=== PATIENT | male | born 1975 | race Caucasian/White ===

== ENCOUNTER 2023-05-27 18:31 | Emergency (ER) | payer OTHER, SELFPAY ==
[2023-05-27 18:45] VITALS: BP 154/106; PULSE 89; RESP 20; O2SAT 97; BMI 33.7
--- NOTE | 2023-05-27 19:13 | ED.GENADULT ---
HPI - General Adult General Date Seen: 05/27/23 Chief complaint: Skin/Abscess/Foreign Body Stated complaint: L leg Spontaneous shooting leg bleed Time Seen by Provider: 05/27/23 18:58 History of Present Illness HPI narrative: This is a very pleasant 47-year-old gentleman presenting to the ER this evening with his for evaluation of bleeding from a chronic sore on the medial aspect of his left lower leg, his medial england, which is about 3[address] from his knee to his ankle. He has had this chronic sore there for the past couple of years. He has apparently had extensive evaluations through his primary care office and with vascular surgeons. He has been told that he has a ?vascular problem? or trouble with the venous outflow from his legs. Apparently this is also associated with varicose veins. He has had consultation with a vascular specialist and they advised against any procedure to correct the veins because of potential risk. Therefore he has had a chronic area on his medial england that is been bothering him. This would affect a roughly 5 x 6 area of his medial england where there is some chronic hemosiderin deposits. He does occasionally developed redness and infection there and had been on antibiotics for that a few weeks ago. Since then he has had a small 1 cm ulcer in the skin. This is been ulcerated and not healing since roughly Day, about 6 weeks ago. He has not had any recent redness. No recent swelling. No fevers or chills. No other bleeding. No injury to that area. This evening he was fixing dinner in the kitchen. He did not have any pain but his family noticed that there was blood on the floor. It turns out he was bleeding fairly briskly with dark red venous blood from the ulcer. He says the blood was squirting out but was not really pulsatile. He was not dizzy or lightheaded, having pain. He applied direct pressure and came straight here to the ER with his . By the time he arrived here the bleeding was substantially slow but not resolved. Nurses applied a pressure dressing to the wound at triage and the bleeding has now stopped. He does not have any other recent unusual bleeding or bruising. He does not take any anticoagulants or anti-platelet meds. He feels fine otherwise. No lightheadedness, shortness of breath, weakness. Related Data Home Medications Medication Instructions Recorded Confirmed amlodipine 5 mg tablet 5 mg PO DAILY 05/27/23 05/27/23 famotidine 20 mg tablet 20 mg PO BID 05/27/23 05/27/23 metoprolol succinate 100 mg 100 mg PO DAILY 05/27/23 05/27/23 tablet,extended release 24 hr rosuvastatin 10 mg tablet 10 mg PO QPM 05/27/23 05/27/23 triamterene 37.5 1 cap PO QAM 05/27/23 05/27/23 mg-hydrochlorothiazide 25 mg capsule Allergies Allergy/AdvReac Type Severity Reaction Status Date / Time No Known Drug Allergies Allergy Verified 05/27/23 18:44 PFSH ON LICENSE OF [facility] Social History Smoking Status: Never smoker Do you use any of these nicotine containing products: None Second hand tobacco smoke exposure: No How often do you have a drink containing alcohol: 4 or more times a week How many standard drinks containing alcohol do you have on a typical day: 5 or 6 How often do you have six or more drinks on one occasion: Daily or almost daily AUDIT-C Alcohol total score: 10 Non-prescribed substance use: denies use service: No Exam Narrative: Exam Narrative: Constitutional: Appears well-developed and well-nourished. Alert. Conversant. Non toxic. HENT: Head: Atraumatic. Nose: Nose normal. Mouth/Throat: Oral mucosa is clear and moist. no trismus. Eyes: Conjunctivae normal. EOM normal. Pupils equal, round, and reactive to light. No scleral icterus. Neck: Normal range of motion. Neck supple. No tracheal deviation present. Cardiovascular: Normal rate, regular rhythm. No gallop. No friction rub. No murmur heard. Symmetric DP and PT artery pulses . Normal brisk distal cap refill. No signs of acute limb ischemia. Pulmonary/Chest: Effort normal. No stridor. No respiratory distress. No wheezes. No rales. No rhonchi . Musculoskeletal: RUE: Normal range of motion. No tenderness. No deformity LUE: Normal range of motion. No tenderness. No deformity RLE: Normal range of motion. No edema. No tenderness. No deformity LLE: Normal range of motion. No edema. No tenderness. No deformity Neurological: Alert and oriented to person, place, and time. Normal strength. CN II-VII intact. No sensory deficit. GCS eye subscore is 4. GCS verbal subscore is 5. GCS motor subscore is 6. Normal coordination Skin: Pressure dressing is in place over the left england, removed for exam. There is an area of chronic appearing hemosiderin deposits affecting roughly the distal 1/3 of his left medial england. No erythema, redness, fluctuance to suggest cellulitis, abscess, gangrene. There is a roughly 1 cm area where there is an open ulceration of the skin with granulation tissue at its base. This was the site of his bleeding at home. No active bleeding at this time. Skin is otherwise pink, warm and dry. No other rash noted. No pallor. Normal capillary refill. Psychiatric: Normal mood. Normal affect. Very pleasant Const: Vital Signs, click to edit/add: Vital Signs - 24 hr 05/27/23 18:45 05/27/23 20:29 Pulse Rate [Pulse Oximeter] 89 82 Respiratory Rate 20 16 Blood Pressure [Le ft Upper Arm] 154/106 H 120/96 H Pulse Oximetry 97 97 Oxygen Delivery Me thod Room Air Room Air Course Vital Signs Vital signs: Initial Vital Signs Temperature Source Temporal Artery Scan 05/27/23 18:45 Pulse Rate 89 05/27/23 18:45 Pulse Rhythm Regular 05/27/23 18:45 Respiratory Rate 20 05/27/23 18:45 Blood Pressure 154/106 H 05/27/23 18:45 Blood Pressure Mean 122 H 05/27/23 18:45 Blood Pressure Position Supine 05/27/23 18:45 Pulse Oximetry 97 05/27/23 18:45 Oxygen Delivery Method Room Air 05/27/23 18:45 Vital Signs Pulse Rate 89 05/27/23 18:45 Respiratory Rate 20 05/27/23 18:45 Blood Pressure 154/106 H 05/27/23 18:45 Pulse Oximetry 97 05/27/23 18:45 Oxygen Delivery Method Room Air 05/27/23 18:45 Pulse Rate 82 05/27/23 20:29 Respiratory Rate 16 05/27/23 20:29 Blood Pressure 120/96 H 05/27/23 20:29 Pulse Oximetry 97 05/27/23 20:29 Oxygen Delivery Method Room Air 05/27/23 20:29 Medical Decision Making MDM Narrative Medical decision making narrative: Very pleasant 47-year-old gentleman with a chronic sore on his left lower leg/medial england that has been bothersome for the past 3 years. Apparently is related to vascular problems and varicose veins leg that are not amenable to repair according to his vascular specialist. He presents to the ER today with episode of an acute atraumatic bleeding from that ulcer. Fortunately bleeding was controlled by direct pressure. He is not anemic, coagulopathic, or anticoagulated. Blood pressure is stable. Discussed with on-call surgeon. Follow up in Wound Clinic as an outpatient Precautions for return to the ER reviewed. Patient and his are comfortable with that plan and eager for discharge. Lab Data Labs: Lab Results 05/27/23 Range/Units 19:27 WBC 6.44 (4.50-11.00) K/uL RBC 4.14 L (4.30-5.90) m/uL Hgb 12.7 L (13.5-17.5) gm/dL Hct 36.9 L (37.0-53.0) % MCV 89 (80-100) fL MCH 31 (26-34) pg MCHC 34 (32-36) gm/dL RDW Coeff of Jesu 12.0 (11.5-15.5) % Plt Count 225 (140-440) K/uL Neut % (Auto) 52.9 (42.0-72.0) % Lymph % (Auto) 34.5 (20-44) % [place] % (Auto) 7.6 (0.0-11.0) % Eos % (Auto) 4.2 (0.0-7.0) % Baso % (Auto) 0.6 (0.0-3.0) % Neut # (Auto) 3.41 (1.7-7.0) K/uL Lymph # (Auto) 2.22 (0.90-2.90) K/uL [place] # (Auto) 0.50 (0.00-0.90) K/UL Eos # (Auto) 0.27 (0.00-0.50) K/uL Baso # (Auto) 0.04 (0.00-0.30) K/uL Abs Immat Gran (auto) 0.01 (0.00-0.30) K/uL Imm/Tot Granulo (auto) 0.2 % INR 0.92 (0.91-1.10) Discharge Plan Discharge Clinical Impression: Chronic wound, Hemorrhage from wound Patient Disposition: Home, Self-Care Condition: Stable Instructions: Chronic Wounds (ED) Additional Instructions: If you have recurrent bleeding from your wound, sit down and elevate your leg, apply direct pressure for 10 minutes. If the wound is still bleeding, wrap the wound and return to the ER immediately to be rechecked. Please follow-up withl the [facility] wound healing center [phone] To schedule a recheck appointment. If you have any concerns such as recurrent bleeding or any other problems, return to the ER or see your doctor right away. Prescriptions: No Action metoprolol succinate 100 mg tablet extended release 24 hr 100 mg PO DAILY amlodipine 5 mg tablet 5 mg PO DAILY triamterene-hydrochlorothiazid 37.5-25 mg capsule 1 cap PO QAM famotidine 20 mg tablet 20 mg PO BID rosuvastatin 10 mg tablet 10 mg PO QPM Follow Up/Referrals: Provider,Not a Local [Referring] - Stand Alone Forms: [employer] Info Instructions
[2023-05-27 20:03] LABS: Basophils Absolute Auto 0.04 K/uL (0.00-0.30); Basophils Percent Auto 0.6 % (0.0-3.0); Eosinophils Absolute Auto 0.27 K/uL (0.00-0.50); Eosinophils Percent Auto 4.2 % (0.0-7.0); Hematocrit 36.9 % (37.0-53.0); Hemoglobin* 12.7 gm/dL (13.5-17.5); Immature Granulocytes Abs Auto 0.01 K/uL (0.00-0.30); Immature Granulocytes Pct Auto 0.2 %; Lymphocytes Absolute Auto 2.22 K/uL (0.90-2.90); Lymphocytes Percent Auto 34.5 % (20-44); Mean Corpuscular HGB Conc 34 gm/dL (32-36); Mean Corpuscular Hemoglobin 31 pg (26-34); Mean Corpuscular Volume 89 fL (80-100); Monocytes Percent Auto 7.6 % (0.0-11.0); Neutrophils Absolute Auto 3.41 K/uL (1.7-7.0); Neutrophils Percent Auto 52.9 % (42.0-72.0); Platelet Count* 225 K/uL (140-440); Red Blood Count 4.14 m/uL (4.30-5.90); White Blood Count* 6.44 K/uL (4.50-11.00)
--- NOTE | 2023-05-27 20:08 | ED.NURSE ---
Pt report given off to oncoming RN
[2023-05-27 20:26] LABS: Slide Review Reflex No
[2023-05-27 20:29] VITALS: BP 120/96; PULSE 82; RESP 16; O2SAT 97
[2023-05-27 20:39] LABS: INR 0.92 (0.91-1.10); Prothrombin Time 12.9 Seconds
== END 2023-05-27 21:21 | disposition home or self-care (01) ==
PROVIDERS: Emergency Provider Emergency Medicine; PCP Family Medicine
DX: S81.802A Unspecified open wound, left lower leg, initial encounter (principal)
CPT/HCPCS: 36415; 85025; 85610; 99283

== ENCOUNTER 2023-06-05 09:16 | Outpatient (CLI) | payer OTHER, SELFPAY | END 2023-06-05 09:17 | disposition home or self-care (01) | PROVIDERS: PCP Family Medicine; Visit Provider Surgery | DX: I83.028 Varicose veins of left lower extremity with ulcer other part of lower leg (principal); L97.822 Non-pressure chronic ulcer of other part of left lower leg with fat layer exposed | CPT/HCPCS: 97597; 99213 ==

== ENCOUNTER 2023-06-12 08:24 | Outpatient (CLI) | payer OTHER, SELFPAY | END 2023-06-12 08:25 | disposition home or self-care (01) | LOC: WOUND 08:24 | PROVIDERS: PCP Family Medicine; Visit Provider Surgery | DX: I83.028 Varicose veins of left lower extremity with ulcer other part of lower leg (principal); L97.822 Non-pressure chronic ulcer of other part of left lower leg with fat layer exposed | CPT/HCPCS: 97597 ==

== ENCOUNTER 2023-06-19 09:24 | Outpatient (CLI) | payer OTHER, SELFPAY | END 2023-06-19 09:25 | disposition home or self-care (01) | LOC: WOUND 09:24 | PROVIDERS: PCP Family Medicine; Visit Provider Surgery | DX: I83.028 Varicose veins of left lower extremity with ulcer other part of lower leg (principal); L97.828 Non-pressure chronic ulcer of other part of left lower leg with other specified severity | CPT/HCPCS: 97597 ==

== ENCOUNTER 2023-06-26 08:21 | Outpatient (CLI) | payer OTHER, SELFPAY | END 2023-06-26 08:22 | disposition home or self-care (01) | LOC: WOUND 08:21 | PROVIDERS: PCP Family Medicine; Visit Provider Surgery | DX: I83.028 Varicose veins of left lower extremity with ulcer other part of lower leg (principal); L97.822 Non-pressure chronic ulcer of other part of left lower leg with fat layer exposed | CPT/HCPCS: 11042 ==

== ENCOUNTER 2023-07-03 08:22 | Outpatient (CLI) | payer OTHER, SELFPAY | END 2023-07-03 08:23 | disposition home or self-care (01) | LOC: WOUND 08:22 | PROVIDERS: PCP Family Medicine; Visit Provider Physician Assistant | DX: I83.028 Varicose veins of left lower extremity with ulcer other part of lower leg (principal); L97.822 Non-pressure chronic ulcer of other part of left lower leg with fat layer exposed | CPT/HCPCS: 97602; 99212 ==

== ENCOUNTER 2023-07-10 08:20 | Outpatient (CLI) | payer OTHER, SELFPAY | END 2023-07-10 08:21 | disposition home or self-care (01) | LOC: WOUND 08:20 | PROVIDERS: PCP Family Medicine; Visit Provider Family Medicine | DX: I83.028 Varicose veins of left lower extremity with ulcer other part of lower leg (principal); L97.822 Non-pressure chronic ulcer of other part of left lower leg with fat layer exposed | CPT/HCPCS: 97602 ==

== ENCOUNTER 2023-07-17 08:13 | Outpatient (CLI) | payer OTHER, SELFPAY | END 2023-07-17 08:14 | disposition home or self-care (01) | LOC: WOUND 08:13 | PROVIDERS: PCP Family Medicine; Visit Provider Physician Assistant Surgical | DX: I83.028 Varicose veins of left lower extremity with ulcer other part of lower leg (principal); L97.822 Non-pressure chronic ulcer of other part of left lower leg with fat layer exposed | CPT/HCPCS: 11042 ==

== ENCOUNTER 2023-07-24 08:23 | Outpatient (CLI) | payer OTHER, SELFPAY | END 2023-07-24 08:24 | disposition home or self-care (01) | LOC: WOUND 08:23 | PROVIDERS: PCP Family Medicine; Visit Provider Family Medicine | DX: I83.028 Varicose veins of left lower extremity with ulcer other part of lower leg (principal); L97.822 Non-pressure chronic ulcer of other part of left lower leg with fat layer exposed | CPT/HCPCS: 97602 ==

== ENCOUNTER 2023-07-31 09:00 | Outpatient (CLI) | payer OTHER, SELFPAY ==
--- OUTSIDE RECORDS SUMMARY | 2023-07-31 09:33 | XMS_ITS | Clinical Summary ---
Author Name Unknown Organization [facility] Address [place], [place] [address] Care Team Providers Care Commercial Shrimping Captain Name Role Phone Princess Talavera MD Primary Care Provider [phone] Allergies No known active allergies Medications Medication Sig Dispensed Refills Start Date End Date Status Graduated Compression StockingsIndications :Cellulitis of left leg 20-30 mm/Hg calf high compression stockings - Venous insufficiency 8 Packet 11/03/2020 Active triamcinolone (ARISTOCORT) 0.1 % ointmentIndications: Dermatitis Apply topically to affected area(s) 3 times daily. 80 g 3 10/03/2021 Active mupirocin (BACTROBAN OINTMENT) ointmentIndications: Left leg cellulitis Apply topically to affected area(s) 3 times daily. 30 g 2 03/07/2022 Active albuterol HFA (Ventolin HFA) 90 mcg/actuation inhalerIndications:M ild intermittent asthma without complication Inhale 1-2 Puffs by mouth every 4 hours if needed for Shortness of Breath 1st choice or Wheezing 1st choice. 2 Each 0 04/05/2023 Active metoprolol succinate (TOPROL XL) 200 mg Sustained-Release tabletIndications:HT N (hypertension) Take 1 Tablet (200 mg) by mouth once daily. 90 Tablet 1 05/29/2023 Active amLODIPine (NORVASC) 5 mg tabletIndications:Hy pertension Take 1 Tablet (5 mg) by mouth once daily. 90 Tablet 1 05/29/2023 Active famotidine (PEPCID) 20 mg tabletIndications:Re flux laryngitis Take 1 Tablet (20 mg) by mouth two times daily. 180 Tablet 1 05/29/2023 Active triamterene-hydrochl orothiazide, 37.5-25 mg, (DYAZIDE) 37.5-25 mg capsuleIndications:E ssential hypertension Take 1 Capsule by mouth every morning. 90 Capsule 1 05/29/2023 Active rosuvastatin (CRESTOR) 20 mg tabletIndications:Hy perlipidemia, unspecified hyperlipidemia type Take 1 Tablet (20 mg) by mouth at bedtime. 90 Tablet 1 05/31/2023 Active Active Problems Problem Noted Date Diagnosed Date Hyperlipidemia 05/02/2018 Hypertension 05/02/2018 Asymptomatic varicose veins of both lower extrem ities 05/02/2018 Mild intermittent asthma 09/19/2010 Resolved Problems Problem Noted Date Diagnosed Date Resolved Date Elevated BP 09/19/2010 05/02/2018 Encounters Date Type Department Care Team Description 05/31/2023 10:00 AM DRUG ROOM CLERK Office Visit [facility] [address] [place] [address] Princess Talavera MD Follow Up (BP and wound on lower left leg ) 05/31/2023 Travel 05/29/2023 1:10 PM DRUG ROOM CLERK Office Visit [facility] [address] [place] [address] Princess Talavera MD ER Follow up ([facility] 05/27/2023) 05/28/2023 Orders Only [facility] Scanner 1 scan: (1-Ord) INCOMING RECORDS-LABS, [facility], 05/28/2023 05/28/2023 Travel 05/28/2023 Refill [facility] [address] [place] [address] Princess Talavera MD Refill Request (Metoprolol Succinate, Triamterene-hydrochlo rothiazide (37.5-25 Mg), Amlodipine) 05/18/2023 Refill [facility] [address] [place] [address] Princess Talavera MD Refill Request (Rosuvastatin) from Last 3 Months Immunizations Name Administration Dates Next Due AMB Influenza, IIV3 (Age >=3 years)(Flu Clinic Only) 05/30/2011 COVID-19 vaccine (Moderna 100mcg/0.5mL) PF, MDV 11/18/2020,10/21/2020 COVID-19 vaccine (Pfizer-Bio NTech 30mcg/0.3mL) PF, MDV 07/10/2021 Influenza, IIV3 (Age >=3 years) 05/06/20 17,05/04/2013,06/28/2010,2007 Influenza, IIV4 07/10/2021,05/07/2018 Influenza, IIV4 (=>6mos) MDV 05/12/2019 Influenza, Injectable, Mdck, Quadrivalent, W/preservative 05/07/2018 Pneumococcal Conj 20-valent (Prevnar 20) 03/07/2022 Tdap 03/10/2020 Family History Medical History Relation Name Comments Hyperlipidemia Father mild Good Health Mother Good Health Sister Cancer-colon No Family History Cancer-prostate No Family History Diabetes No Family History Heart attack No Family History Relation Name Status Comments Father Mother Sister Social History Tobacco Use Types Packs/Day Years Used Date Smoking Tobacco: Former Smokeless Tobacco: Never Tobacco Cessation:Counseling Given: Yes Alcohol Use Standard Drinks/Week Comments Yes 12.5 (1 standard drink = 0.6 oz pure alcohol) 2 beers a day PHQ-2 Answer Date Recorded PHQ-2 TOTAL SCORE 0 07/13/2021 Social Connections Answer Date Recorded Frequency of Communication with Friends and Fami ly 0 04/05/2023 Financial Resource Strain Answer Date R ecorded Difficulty of Paying Living Expenses 3 04/05/2023 Difficulty of Paying Living Expenses Not on file 04/05/2023 Food Insecurity Answer Date Recorded Worried About Running Out of Food in the Last Ye ar 1 04/05/2023 Transportation Needs Answer Date Record ed Lack of Transportation (Medical) 1 04/05/2023 Housing Stability Answer Date Recorded Unable to Pay for Housing in the Last Year 1 04/05/2023 Sex and Gender Information Value Date Recorded Sex Assigned at Not on file Gender Identity Not on file Sexual Orientation Not on file Obstetrics History Last Filed Vital Signs Vital Sign Reading Time Taken Comments Blood Pressure 122/82 05/31/2023 10:33 AM DRUG ROOM CLERK Pulse 75 05/31/2023 10:03 AM DRUG ROOM CLERK Temperature 36.9 ??C (98.4 ??F) 04/05/2023 11:41 AM C DT Respiratory Rate - - Oxygen Saturation 99% 05/31/2023 10:03 AM DRUG ROOM CLERK Inhaled Oxygen Concentration - - Weight 124.3 kg (274 lb) 05/31/2023 10:03 AM DRUG ROOM CLERK Height 190.5 cm (6' 3) 05/31/2023 10:03 AM DRUG ROOM CLERK Body Mass Index 34.25 05/31/2023 10:03 AM DRUG ROOM CLERK Plan of Treatment Health Maintenance Due Date Last Done Comments HIV for age 15-65 1989 Colonoscopy through age 75 11/05/2019 Depression screening for age 12+ 07/13/2022 07/13/2021, 03/11/2020, 03/10/2020, Additional history exists COVID-19 vaccine series ( season) 2023 07/10/2021, 11/18/2020, 10/21/2020 Influenza for age 9-49 03/22/2023 , 05/12/2019, 05/07/2018, Additional history exists BMI (ht and wt on same day) for age 18+ 05/31/2024 05/31/2023, 07/13/2021, 12/07/2020, Additional history exists Lipids for age 45-75 05/29/2028 05/29/2023, 05/31/2020, 05/31/2020, Additional history exists Tetanus booster 03/10/2030 03/10/2020 Tdap Completed 03/10/2020 Hepatitis C screening for ag e 18-79 Completed 11/16/2020 Pneumococcal series for age 6-64 Completed 03/07/20 22 Procedures Procedure Name Priority Date/Time Associated Diagnosis Comments LDL CHOLESTEROL,DIRECT Routine 05/29/2023 2:02 PM DRUG ROOM CLERK Hyperlipidemia, unspecified hyperlipidemia type COMP METABOLIC PANEL Routine 05/29/2023 2:02 PM DRUG ROOM CLERK Essential hypertension HEMOGLOBIN Routine 05/29/2023 2:02 PM DRUG ROOM CLERK Bleeding from wound SCAN CORRESP-LABORATORY RESULTS 05/28/2023 12:00 AM DRUG ROOM CLERK from Last 3 Months Results * (ABNORMAL) HEMOGLOBIN (05/29/2023 2:02 PM DRUG ROOM CLERK) HEMOGLOBIN 12.4(L) 13.5 - 17.5 g/dL 05/29/2023 2:13 PM DRUG ROOM CLERK [facility] MCV 90 80 - 100 fL 05/29/2023 2:13 PM DRUG ROOM CLERK [facility] Blood BLOOD SPECIMEN / Unknown Venipuncture / Unknown 05/29/2023 2:02 PM DRUG ROOM CLERK 05/29/2023 2:02 PM DRUG ROOM CLERK Princess Talavera MD HEMATOLOGY [facility] [address] [place] [address], * LDL CHOLESTEROL,DIRECT (05/29/2023 2:02 PM DRUG ROOM CLERK) [facility] LDL CHOLESTEROL,DI RECT 105 mg/dL 05/30/2023 4:33 AM DRUG ROOM CLERK [facility] PROVIDER ORDERED STATUS RANDOM 05/30/2023 4:33 AM DRUG ROOM CLERK [facility] Blood BLOOD SPECIMEN / Unknown Venipuncture / Unknown 05/29/2023 2:02 PM DRUG ROOM CLERK 05/29/2023 2:02 PM DRUG ROOM CLERK Narrative [facility] - 05/30/2023 4:33 AM DRUG ROOM CLERK Optimal ?<100 mg/dl Near Optimal ?100-129 mg/dl Borderline High ?? 130-159 mg/dl High ?160-189 mg/dl Very High ? >=190 mg/dl Princess Talavera MD CHEMISTRY [facility] [address] [place] [address], * (ABNORMAL) COMP METABOLIC PANEL (05/29/2023 2:02 PM DRUG ROOM CLERK) Pathologist [facility] SODIUM 136 136 - 145 mmol/L 05/30/2023 4:[address] [facility] POTASSIUM 3.6 3.5 - 5.1 mmol/L 05/30/2023 4:[address] [facility] CHLORIDE 97(L) 98 - 107 mmol/L 05/30/2023 4:[address] [facility] CO2,TOTAL 28 22 - 29 mmol/L 05/30/2023 4:[address] [facility] ANION GAP 11 5 - 18 05/30/2023 4:[address] [facility] GLUCOSE 107(H) 70 - 99 mg/dL 05/30/2023 4:[address] [facility] CALCIUM 9.4 8.6 - 10.0 mg/dL 05/30/2023 4:[address] [facility] BUN 12 6 - 20 mg/dL 05/30/2023 4:[address] [facility] CREATININE 1.12 0.70 - 1.20 mg/dL 05/30/2023 4:[address] [facility] BUN/CREAT RATIO 11 10 - 20 4:[address] [facility] eGFR 81(L) >90 mL/min/1.7 3m2 05/30/2023 4:[address] [facility] Comment:As of 2021, eG FR is calculated by the CKD-EPI creatinine equation without race adjustment. ??eGFR can be influenced by muscle mass, exercise, and diet. ??The reported eGFR is an estimation only and is only applicable if the renal function is stable. ALBUMIN 4.3 4.0 - 4.9 g/dL 05/30/2023 4:[address] [facility] PROTEIN,TOTAL 7.3 6.0 - 8.0 g/dL 05/30/2023 4:[address] [facility] BILIRUBIN,TOTAL 0.4 0.0 - 1.2 mg/dL 05/30/2023 4:[address] [facility] ALK PHOSPHATASE 49 40 - 129 IU/L 05/30/2023 4:33 AM DRUG ROOM CLERK [facility] ALT (SGPT) 53(H) 10 - 50 IU/L 05/30/2023 4:33 AM DRUG ROOM CLERK [facility] AST (SGOT) 56(H) 10 - 50 IU/L 05/30/2023 4:33 AM DRUG ROOM CLERK [facility] Blood BLOOD SPECIMEN / Unknown Venipuncture / Unknown 05/29/2023 2:02 PM DRUG ROOM CLERK 05/29/2023 2:02 PM DRUG ROOM CLERK Princess Talavera MD [facility] [address] [place] [address], [place] * SCAN CORRESP-LABORATORY RESULTS (05/28/2023 12:00 AM DRUG ROOM CLERK) Scanner OTHER from Last 3 Months Care Teams [employer] Shrim[employer] Captain Relationship Specialty Start Date End Date Princess Talavera MD [address] [place] [address] PCP - General Family Practice 08/30/20
== END 2023-07-31 09:01 | disposition home or self-care (01) ==
LOC: WOUND 09:00
PROVIDERS: PCP Family Medicine; Visit Provider Physician Assistant
DX: I83.028 Varicose veins of left lower extremity with ulcer other part of lower leg (principal); L97.821 Non-pressure chronic ulcer of other part of left lower leg limited to breakdown of skin
CPT/HCPCS: 97602

== ENCOUNTER 2023-08-07 08:26 | Outpatient (CLI) | payer OTHER, SELFPAY | END 2023-08-07 08:27 | disposition home or self-care (01) | LOC: WOUND 08:26 | PROVIDERS: PCP Family Medicine; Visit Provider Physician Assistant | DX: I83.022 Varicose veins of left lower extremity with ulcer of calf (principal); L97.221 Non-pressure chronic ulcer of left calf limited to breakdown of skin | CPT/HCPCS: 97602 ==

== ENCOUNTER 2023-08-14 08:20 | Outpatient (CLI) | payer OTHER, SELFPAY ==
--- OUTSIDE RECORDS SUMMARY | 2023-08-14 08:22 | XMS_ITS | Clinical Summary ---
Author Name Unknown Organization [email or web address] [facility] Address [place], [place] [address] Care Team Providers Care Adobe Ball Mixer Name Role Phone Princess Talavera MD Primary Care Provider [phone] Allergies No known active allergies Medications Medication [...] Department Care Team Description 05/31/2023 10:00 AM PIPING DESIGN SPECIALIST Office Visit [facility] [address] [facility] [place] [address] Princess Talavera MD Follow Up (BP and wound on lower left leg ) 05/31/2023 Travel 05/29/2023 1:10 PM PIPING DESIGN SPECIALIST Office Visit [facility] [address] [place] [address] Princess Talavera MD ER Follow up ([facility] 05/27/2023) 05/28/2023 Orders Only [facility] Scanner 1 scan: (1-Ord) INCOMING RECORDS-LABS, [facility], 05/28/2023 05/28/2023 Travel 05/28/2023 Refill [facility] [address] [place] [address] Princess Talavera MD Refill Request (Metoprolol Succinate, Triamterene-hydrochlo rothiazide (37.5-25 Mg), Amlodipine) 05/18/2023 Refill [facility] [address] [place] [address] Princess Talavera MD Refill Request (Rosuvastatin) from [...] Comments Blood Pressure 122/82 05/31/2023 10:33 AM PIPING DESIGN SPECIALIST Pulse 75 05/31/2023 10:03 AM PIPING DESIGN SPECIALIST Temperature 36.9 ??C (98.4 ??F) 04/05/2023 11:41 AM C DT Respiratory Rate - - Oxygen Saturation 99% 05/31/2023 10:03 AM PIPING DESIGN SPECIALIST Inhaled Oxygen Concentration - - Weight 124.3 kg (274 lb) 05/31/2023 10:03 AM PIPING DESIGN SPECIALIST Height 190.5 cm (6' 3) 05/31/2023 10:03 AM PIPING DESIGN SPECIALIST Body Mass Index 34.25 05/31/2023 10:03 AM PIPING DESIGN SPECIALIST Plan of Treatment Health Maintenance Due Date [...] Comments LDL CHOLESTEROL,DIRECT Routine 05/29/2023 2:02 PM PIPING DESIGN SPECIALIST Hyperlipidemia, unspecified hyperlipidemia type COMP METABOLIC PANEL Routine 05/29/2023 2:02 PM PIPING DESIGN SPECIALIST Essential hypertension HEMOGLOBIN Routine 05/29/2023 2:02 PM PIPING DESIGN SPECIALIST Bleeding from wound SCAN CORRESP-LABORATORY RESULTS 05/28/2023 12:00 AM PIPING DESIGN SPECIALIST from Last 3 Months Results * (ABNORMAL) HEMOGLOBIN (05/29/2023 2:02 PM PIPING DESIGN SPECIALIST) HEMOGLOBIN 12.4(L) 13.5 - 17.5 g/dL 05/29/2023 2:13 PM PIPING DESIGN SPECIALIST [facility] MCV 90 80 - 100 fL 05/29/2023 2:13 PM PIPING DESIGN SPECIALIST [facility] Blood BLOOD SPECIMEN / Unknown Venipuncture / Unknown 05/29/2023 2:02 PM PIPING DESIGN SPECIALIST 05/29/2023 2:02 PM PIPING DESIGN SPECIALIST Princess Talavera MD HEMATOLOGY [facility] [address] [place] [address], * LDL CHOLESTEROL,DIRECT (05/29/2023 2:02 PM PIPING DESIGN SPECIALIST) [facility] LDL CHOLESTEROL,DI RECT 105 mg/dL 05/30/2023 4:33 AM PIPING DESIGN SPECIALIST [facility] PROVIDER ORDERED STATUS RANDOM 05/30/2023 4:33 AM PIPING DESIGN SPECIALIST [facility] Blood BLOOD SPECIMEN / Unknown Venipuncture / Unknown 05/29/2023 2:02 PM PIPING DESIGN SPECIALIST 05/29/2023 2:02 PM PIPING DESIGN SPECIALIST Narrative [facility] - 05/30/2023 4:33 AM PIPING DESIGN SPECIALIST Optimal ?<100 mg/dl Near Optimal ?100-129 mg/dl Borderline High ?? 130-159 mg/dl High ?160-189 mg/dl Very High ? >=190 mg/dl Princess Talavera MD CHEMISTRY [facility] [address] [place] [address], * (ABNORMAL) COMP METABOLIC PANEL (05/29/2023 2:02 PM PIPING DESIGN SPECIALIST) Pathologist [facility] SODIUM 136 136 - 145 mmol/L 05/30/2023 4:33 AM [facility] POTASSIUM 3.6 3.5 - 5.1 mmol/L 05/30/2023 4:33 AM [facility] CHLORIDE 97(L) 98 - 107 mmol/L 05/30/2023 4:33 AM [facility] CO2,TOTAL 28 22 - 29 mmol/L 05/30/2023 4:33 AM [facility] ANION GAP 11 5 - 18 05/30/2023 4:33 AM [facility] GLUCOSE 107(H) 70 - 99 mg/dL 05/30/2023 4:33 AM [facility] CALCIUM 9.4 8.6 - 10.0 mg/dL 05/30/2023 4:33 AM [facility] BUN 12 6 - 20 mg/dL 05/30/2023 4:33 AM [facility] CREATININE 1.12 0.70 - 1.20 mg/dL 05/30/2023 4:33 AM [facility] BUN/CREAT RATIO 11 10 - 20 4:33 AM [facility] eGFR 81(L) >90 mL/min/1.7 3m2 05/30/2023 4:33 AM [facility] Comment:As of 2021, eG FR is calculated by the CKD-EPI creatinine equation without race adjustment. ??eGFR can be influenced by muscle mass, exercise, and diet. ??The reported eGFR is an estimation only and is only applicable if the renal function is stable. ALBUMIN 4.3 4.0 - 4.9 g/dL 05/30/2023 4:33 AM [facility] PROTEIN,TOTAL 7.3 6.0 - 8.0 g/dL 05/30/2023 4:33 AM [facility] BILIRUBIN,TOTAL 0.4 0.0 - 1.2 mg/dL 05/30/2023 4:33 AM [facility] ALK PHOSPHATASE 49 40 - 129 IU/L 05/30/2023 4:33 AM PIPING DESIGN SPECIALIST [facility] ALT (SGPT) 53(H) 10 - 50 IU/L 05/30/2023 4:33 AM PIPING DESIGN SPECIALIST [facility] AST (SGOT) 56(H) 10 - 50 IU/L 05/30/2023 4:33 AM PIPING DESIGN SPECIALIST [facility] Blood BLOOD SPECIMEN / Unknown Venipuncture / Unknown 05/29/2023 2:02 PM PIPING DESIGN SPECIALIST 05/29/2023 2:02 PM PIPING DESIGN SPECIALIST Princess Talavera MD [facility] [address] [place] [address], [place] * SCAN CORRESP-LABORATORY RESULTS (05/28/2023 12:00 AM PIPING DESIGN SPECIALIST) Scanner OTHER from Last 3 Months Care Teams [employer] Relationship Specialty Start Date End Date Princess Talavera MD [address] [place] [address] PCP - General Family Practice 08/30/20
== END 2023-08-14 08:21 | disposition home or self-care (01) ==
LOC: WOUND 08:20
PROVIDERS: PCP Family Medicine; Visit Provider Family Medicine
DX: I83.028 Varicose veins of left lower extremity with ulcer other part of lower leg (principal); L97.822 Non-pressure chronic ulcer of other part of left lower leg with fat layer exposed
CPT/HCPCS: G0463

== ENCOUNTER 2024-09-22 08:37 | Outpatient (CLI) | payer OTHER, SELFPAY | END 2024-09-22 08:38 | disposition home or self-care (01) | LOC: WOUND 08:37 | PROVIDERS: PCP Family Medicine; Visit Provider Nurse Practitioner Family | DX: I87.312 Chronic venous hypertension (idiopathic) with ulcer of left lower extremity (principal); L97.822 Non-pressure chronic ulcer of other part of left lower leg with fat layer exposed | CPT/HCPCS: 11042; G0463 ==

== ENCOUNTER 2024-10-06 10:21 | Outpatient (CLI) | payer OTHER, SELFPAY | END 2024-10-06 10:22 | disposition home or self-care (01) | LOC: WOUND 10:23 | PROVIDERS: PCP Family Medicine; Visit Provider Nurse Practitioner Family | DX: I87.312 Chronic venous hypertension (idiopathic) with ulcer of left lower extremity (principal); I89.0 Lymphedema, not elsewhere classified; L97.822 Non-pressure chronic ulcer of other part of left lower leg with fat layer exposed | CPT/HCPCS: 97597 ==

== ENCOUNTER 2024-10-20 10:25 | Outpatient (CLI) | payer OTHER, SELFPAY | END 2024-10-20 10:26 | disposition home or self-care (01) | LOC: WOUND 10:27 | PROVIDERS: PCP Family Medicine; Visit Provider Family Medicine | DX: I87.312 Chronic venous hypertension (idiopathic) with ulcer of left lower extremity (principal); I89.0 Lymphedema, not elsewhere classified; L97.822 Non-pressure chronic ulcer of other part of left lower leg with fat layer exposed | CPT/HCPCS: 11042 ==

== ENCOUNTER 2024-11-10 08:49 | Outpatient (CLI) | payer OTHER, SELFPAY | END 2024-11-10 08:50 | disposition home or self-care (01) | LOC: WOUND 08:49 | PROVIDERS: PCP Family Medicine; Visit Provider Physician Assistant | DX: I87.312 Chronic venous hypertension (idiopathic) with ulcer of left lower extremity (principal); I89.0 Lymphedema, not elsewhere classified; L97.822 Non-pressure chronic ulcer of other part of left lower leg with fat layer exposed | CPT/HCPCS: 97597 ==

== ENCOUNTER 2024-12-01 10:22 | Outpatient (CLI) | payer OTHER, SELFPAY | END 2024-12-01 10:23 | disposition home or self-care (01) | LOC: WOUND 10:22 | PROVIDERS: PCP Family Medicine; Visit Provider Physician Assistant | DX: I89.0 Lymphedema, not elsewhere classified (principal); I87.302 Chronic venous hypertension (idiopathic) without complications of left lower extremity | CPT/HCPCS: G0463 ==